=== PATIENT | female | born 1960 | race Asian ===

== ENCOUNTER → 2016-07-26 | Outpatient (CLI) | payer BC ==
[~2016-07-26] MED LIST: KEFLEX PO; LORTAB 7.5-5001 TAB PO; NO MEDICATIONS; PANTOPRAZOLE SO40 MG
--- NOTE | ~2016-07-26 | MY11 ---
[facility] A Service of [facility] RADIOLOGY TEXT RESULTS PATIENT: CHERELLE RAINES LOCATION: [facility] : 62 UNIT #: [id number] AGE: [address]: Darius Lackey MD SEX: F ORDER DR: [id number] [facility] [address] [facility]. [place], [place] [address] [id number] O MR#: [id number] #: [id number] NAME: CHERELLE RAINES : 1960 SEX: F STUDY DATE/TIME: 07/26/2016 11:15 UNIT: [facility] ROOM: STUDY DESCRIPTION: MY Mammogram Screening [facility] [place] Attending Physician: Darius Lackey M.D. Referring Physician: Darius Lackey M.D. Ordering Physician: Darius Lackey M.D. Primary Care Physician: Darius Lackey M.D. MEDICAL IMAGING REPORT This report is preliminary unless electronic signature is present EXAM Digital screening mammogram 07/26/2016. HISTORY 55-year-old woman. No risk elevation. Annual screen. COMPARISON Screening exams date to 04/02/2007 with most recent comparison 07/18/2011. FINDINGS Digital imaging of each breast was completed utilizing screening protocol. Review includes FDA approved CAD device. Breast parenchyma is homogeneously dense, limiting mammographic sensitivity. I see no suspicious mass characteristics. There is an occasional faint calcification with no visualized suspicious microcalcifications and no architectural deformity. IMPRESSION Benign mammogram. Stable dense breast parenchyma again noted. Annual screening recommended. Patients over the age of 40 are entered into a reminder system with target due date for the next mammogram. A result letter will also be sent to the patient. BIRADS: 2 Benign finding. Dictated by... Lizandro Bertrand M.D. THIS IS AN ELECTRONICALLY VERIFIED REPORT Lizandro Bertrand M.D. at 07/27/2016 8:04 AM HARRY/sundeep [facility] A Service of [facility] RADIOLOGY TEXT RESULTS PATIENT: CHERELLE RAINES LOCATION: [facility] #: [id number] : 62 UNIT #: [id number] AGE: [address]: Darius Lackey MD SEX: F ORDER DR: TD: 07/26/2016 17:06 JOB #: [id number] MEDICAL IMAGING REPORT COPY
== END | disposition home or self-care (01) ==
LOC: CWCC 11:00
DX: Z12.31 Encounter for screening mammogram for malignant neoplasm of breast (principal); R92.8 Other abnormal and inconclusive findings on diagnostic imaging of breast
CPT/HCPCS: G0202